=== PATIENT | male | born 1990 | race African-American/Black ===

== ENCOUNTER → 2020-11-29 08:26 | Outpatient (CLI) | payer OTHER, SELFPAY ==
--- NOTE | 2020-11-29 | DI.RAD.S_ITS ---
PROCEDURE: FL SHOULDER INJECTION MR/CT RT INDICATIONS: Pain in right shoulder COMPARISON: None. TECHNIQUE: The indications, alternatives, benefits, risks, and complications of the procedure were explained to the patient. Written informed consent was obtained and placed in the chart. The shoulder was examined fluoroscopically and a site for needle placement chosen for entry into the glenohumeral joint from an anterior approach. The skin was prepped and draped in a sterile fashion, and 1% lidocaine infiltrated from skin down to joint capsule. A spinal needle was inserted into the glenohumeral joint, and a small amount of iodinated contrast media injected to confirm intra-articular placement of the needle tip. This was followed by approximately 12 mL dilute solution of a gadolinium containing MR contrast agent. The needle was removed and a dressing was applied. The patient was given postprocedural instructions and sent to the MR suite for MR imaging. FINDINGS: A single fluoroscopic spot image demonstrates intra-articular location of injected iodinated contrast. IMPRESSION: Successful fluoroscopically guided administration of dilute Gadolinium solution into the shoulder joint for MR arthrogram. No immediate complications. Dictated by: Mica Denton MD, PhD on 11/29/2020 at 10:55 Approved by: Mica Denton MD, PhD on 11/29/2020 at 10:55
--- NOTE | 2020-11-29 | DI.MRI.S_ITS ---
PROCEDURE: MR SHOULDER RT W CON INDICATIONS: Pain in right shoulder TECHNIQUE: After the administration of 12 mL of dilute intra-articular Gadolinium contrast, oblique coronal T1 and T2 spin echo with fat saturation, oblique sagittal T1 spin echo with and without fat saturation, oblique sagittal T2 fast spin echo with fat saturation, axial T1 spin echo with fat saturation through the shoulder. COMPARISON: [facility], RG, MRI SHOULDER RIGHT WO CONTRAST, 07/16/2020, 8:23. FINDINGS: Rotator cuff: Low-grade bursal surface fraying of the supraspinatus tendon. Infraspinatus tendinopathy is noted. The teres minor tendon appears intact. Subscapularis tendon appears intact. No atrophy of the rotator cuff muscles. Bones and bursae: No bone marrow contusions or fractures. Moderate acromioclavicular joint degeneration. Lateral downsloping appearance of the acromion incidentally noted. No os acromiale. Mild subacromial-subdeltoid bursitis. Capsule and soft tissues: Labrum: Blunted appearance of the posterior labrum however no discrete intrasubstance gadolinium signal intensity. There is minimal if any adjacent glenoid rim segmental sclerotic changes however possible partial-thickness chondral loss for example image 12/6. Superior labrum appears intact. Biceps tendon: Long head of the biceps tendon intact. Rotator interval: Normal signal intensity. Coracohumeral ligament: Intact. IMPRESSION: Low-grade bursal surface fraying of the supraspinatus tendon, and adjacent mild subacromial-subdeltoid bursitis. Notably, there is lateral downsloping appearance of the acromion. Infraspinatus tendinopathy. Blunted appearance of the posterior labrum raising the possibility of chronic labral tear. Adjacent partial-thickness chondral loss is suspected as above, however minimal if any glenoid rim segmental sclerosis or spurring. Recommend close clinical correlation Dictated by: Mendez Hernandez M.D. on 11/29/2020 at 10:06 Approved by: Mendez Hernandez M.D. on 11/29/2020 at 10:21
== END ==
PROVIDERS: Referring Provider Orthopaedic Surgery; Visit Provider Orthopaedic Surgery
DX: M25.511 Pain in right shoulder (principal); M75.51 Bursitis of right shoulder
CPT/HCPCS: 23350; 73222; 77002